=== PATIENT | female | born 1960 | race Caucasian/White ===

== ENCOUNTER 2022-09-09 07:41 | Emergency (ER) | payer SELFPAY ==
[~2022-09-09] VITALS: Ht 170.2 cm; Wt 79.5 kg
[2022-09-09 07:43] VITALS: BP 155/63
[2022-09-09] MEDS ORDERED: RABIES VACCINE (PCEC)/PF 2.5 UNITS IM ONE ×2 (08:00→09:00)
== END 2022-09-09 10:04 | disposition home or self-care (01) ==
LOC: ER 07:41
DX: S60.572D Other superficial bite of hand of left hand, subsequent encounter (principal); Z23 Encounter for immunization; W54.0XXD Bitten by dog, subsequent encounter
CPT/HCPCS: 90471; 90675